=== PATIENT | male | born 1980 | race Two or more races ===

== ENCOUNTER 2021-10-30 17:02 | Emergency (ER) | payer OTHER ==
[~2021-10-30] VITALS: Ht 162.6 cm; Wt 64.4 kg
[2021-10-30 17:38] VITALS: BP 140/112
--- NOTE | 2021-10-30 18:06 | NUR ---
PT AMB TO BED 11.
[2021-10-30] MEDS ORDERED: IBUP-2213 PO (18:20)
--- NOTE | 2021-10-30 18:24 | NUR ---
Bed cleaned and pt now placed in bed 11
[2021-10-30] MEDS ORDERED: KETOROLAC 60 MG/2 ML VIAL IM ONE (18:40)
--- NOTE | 2021-10-30 18:57 | NUR ---
F/C placed and family educated on how to empty urine.
--- NOTE | 2021-10-30 19:27 | NUR ---
Pt report given to LEILANI Mario. Transfer of care at this time.
[2021-10-30] MEDS ORDERED: MORPHINE SULFATE 4 MG/ML SYR IM ONE (19:45)
[2021-10-30 19:48] VITALS: BP 132/89
== END 2021-10-30 19:48 | disposition home or self-care (01) ==
LOC: MED 17:02
DX: R33.9 Retention of urine, unspecified (principal); F31.9 Bipolar disorder, unspecified
CPT/HCPCS: 51702; 81002; 82948; 96372; 99284; J1885; 81025